=== PATIENT | male | born 1985 | race African-American/Black ===

== ENCOUNTER 2016-07-11 17:07 | Emergency (ER) | payer OTHER ==
[~2016-07-11] VITALS: Ht 177.8 cm; Wt 75.0 kg
--- OUTSIDE RECORDS SUMMARY | 2016-07-11 17:13 | XMS REPORT ---
Author Author GENERATED, SYSTEM Organization Unknown Address Unknown Phone Unavailable Care Team Providers Care [employer] Name Role Phone PP Unavailable Reason For Visit Chief Complaint SOB Social History Functional Status Vital Signs Results Problems Encounter Diagnosis No relevant problems exist. Encounters Encounter Diagnosis No relevant problems exist. Plan of Care Procedures No relevant procedures performed. Immunizations No immunizations administered or ordered. Hospital Course Hospital Discharge Instructions Allergies, Adverse Reactions, Alerts This section is route service representative of the current allergy information, at the time of the CCD generation. In the case of regeneration of the CCD, the allergy information may not reflect the state of known allergies at the time of the CCD' s subject visit. Latex Allergy has not been assessed.IV Contrast Allergy has not been assessed. Medication Medication reconciliation has not been performed.
--- NOTE | 2016-07-11 17:15 | NUR ---
Patient seen by Dr. Mullins. Patient refuses treatment. Wants food and water and to leave. Patient given water and granola bars, crackers and peanut butter. Patient left, refusing to sign AMA form.
== END 2016-07-11 17:15 | disposition left against medical advice (07) ==
LOC: ED 17:09
DX: R42 Dizziness and giddiness (principal)
CPT/HCPCS: 99281; 99282

== ENCOUNTER → 2016-07-11 | Outpatient (CLI) | payer OTHER | LOC: EMS 16:40 | PROVIDERS: ATTEND Emergency Medicine | DX: R42 Dizziness and giddiness (principal) ==